=== PATIENT | female | born 1990 | race African-American/Black ===

== ENCOUNTER 2020-10-05 05:08 | Emergency (ER) | payer MEDICAID ==
[~2020-10-05] VITALS: Ht 175.3 cm; Wt 70.5 kg
[2020-10-05] MEDS ORDERED: METHYLPREDNISOLONE SOD SUCC 125 MG/2 ML VIAL IV STA (07:19)
[2020-10-05] MEDS ORDERED: IPRATROPIUM BROMIDE (0.02%) 0.5MG/2.5ML NEB HHN STA (07:19)
[2020-10-05] MEDS ORDERED: ALBUTEROL (0.083%) 2.5MG/3ML NEB HHN STA (07:19)
[2020-10-05] MEDS ORDERED: P50 MT (09:37)
[2020-10-05] MEDS ORDERED: ALBU18HF2 IH (09:37)
[2020-10-05 09:46] VITALS: BP 125/82
== END 2020-10-05 09:47 | disposition home or self-care (01) ==
LOC: ER 05:08
DX: J45.901 Unspecified asthma with (acute) exacerbation (principal)
CPT/HCPCS: 71045; 93005; 94644; 96374; 99285; J2930; Z7610